=== PATIENT | male | born 1965 | race Caucasian/White ===

== ENCOUNTER 2020-05-26 11:38 | Emergency (ER) | payer SELFPAY ==
[2020-05-26] VITALS (29 sets, daily range): BP systolic 148–180; BP diastolic 83–115; PULSE 60–81; RESP 13–25; TEMP 36.5; O2SAT 97–100
--- NOTE | 2020-05-26 11:30 | RT.EKG_ITS ---
APPROVED REPORT Exam: Resting ECG Patient Location: E HR:61 bpm ECG Measurements Heart Rate 61 AXIS MN 165 P 48 QRSd 88 QRS 51 QT 403 T 54 QTc 406 Conclusion Sinus rhythm...normal P axis, V-rate 60- 99 I have reviewed and interpreted ECG and agree with software generated interpretation.
--- NOTE | 2020-05-26 11:49 | ED.GENADUL_ITS ---
Discharge Plan Disposition Patient Disposition: HOME Condition: Improving Discharge Details Clinical Impression: Vertigo, Vomiting, Hypertension Primary Care Provider: None,None ED Provider: Myranda Dominguez Home Meds and New Rx's Prescriptions: New meclizine 12.5 mg tablet 12.5 mg PO TID PRN (Reason: dizziness) Qty: 14 RF: 0 hydrochlorothiazide 12.5 mg tablet 12.5 mg PO DAILY Qty: 30 RF: 0 Discharge Instructions Instructions: Vertigo (ED), Hypertension (ED) Additional Instructions: Drink plenty of fluids and get plenty of rest. Take Zofran as needed directed for nausea and vomiting. Take the meclizine as needed and directed for dizziness. Be sure to watch your sodium intake as your diet could be a large part of your elevated blood pressure. Continue to monitor your blood pressure. If it continues to remain high, i.e. 150/90, you can start the blood pressure medication. You will receive a call from care management regarding a follow-up appointment with a primary care doctor to establish care and to recheck your blood pressure. Return immediately to the emergency department if you develop any worsening or new concerning symptoms. Stand Alone Forms: Work Release Discharge Data Discharge Physician: Myranda Dominguez Medical Decision Making 1200 -- 54-year-old male with no significant past medical history presents for dizziness and vomiting after awakening this morning. Blood pressure hypertensive. 157/101. Patient states he was noted to have high blood pressure on his recent physical for his job. Has not taken blood pressure medication. He appears nontoxic. No focal deficits. History and presentation appear likely consistent with vertigo. Considering patient's age and hypertension, will check screening labs, CT head and cervical spine and chest x-ray, give fluids and meclizine and Tylenol and reassess. 1345 --labs and imaging reviewed and unremarkable. Troponin negative. CT head and cervical spine and chest x-ray negative. Patient reassessed and he feels much better and feels good to go home. BP remains hypertensive. 170/82. He denies any headache, chest pain or dizziness. He states he has been eating lots of processed foods with high sodium while he is awaiting for his paycheck. He is advised to watch his sodium intake. We will send home with a prescription for hydrochlorothiazide to start if blood pressure remains high after diet changes. Care management discussed with patient at bedside and he was given resources regarding starting his insurance process. He was placed on care management list to arrange for a follow-up appointment with the primary care to establish care and follow-up of his blood pressure and vertigo. Usual and customary return precautions given prior to discharge. Medical Records Medical records reviewed: Yes I reviewed the patient's medical records. Imaging Data Radiologic Study: Radiologist's impression: XR CHEST 2V PA LATERAL CLINICAL HISTORY: dizziness, r/o acute disease TECHNIQUE: 2D digital imaging was performed. COMPARISON: No exams were available for comparison FINDINGS: MEDIASTINUM: Normal. HEART: Normal. PULMONARY VASCULATURE: Normal. LUNGS: Clear. PLEURAL SPACE: No pleural effusion or pneumothorax. BONE:Within normal limits for the patient's age. OTHER FINDINGS:Normal. IMPRESSION: No acute pulmonary findings. CT HEAD CERVICAL SPINE WO CLINICAL HISTORY: headache, neck pain, dizziness, vomiting. TECHNIQUE: Imaging Protocol: Axial computed tomography images with coronal and sagittal reformatted images were created and reviewed COMPARISON: No exams were available for comparison FINDINGS: CT Head: Ventricles and Extra axial spaces: Normal in size and morphology for the patient's age. Hemorrhage: None. Cerebral parenchyma: Normal. Midline shift: None. Brainstem/Cerebellum: Normal. Calvarium: Normal. Visualized Paranasal sinuses/Mastoids: Mucous retention cyst or polyp is seen in the left maxillary sinus. The remaining sinuses and mastoid air cells are clear. Soft Tissues: Unremarkable. CT Cervical Spine: Bones: No acute fracture or subluxation. Mild degenerative changes in the cervical spine are noted. There is straightening of the normal cervical lordosis which may be due to muscle spasm or patient positioning. Soft Tissues: Unremarkable. Lung Apices: Clear. IMPRESSION: 1. No acute intracranial process. 2. No acute fracture or subluxation in the cervical spine. 3. Findings were discussed with the emergency department on the date of the examination. Lab Data Lab results reviewed: Yes I reviewed the patient's lab results. Labs: Laboratory Tests Range/Units 05/26/20 05/26/20 05/26/20 12:00 12:00 12:00 WBC (4.4-10.8) 10^3/uL 9.80 RBC (4.36-5.78) 10^6/uL 4.69 Hgb (13.5-17.5) g/dL 15.4 Hct (40.0-50.0) % 42.9 MCV (80-95) fL 91.5 MCH (27.0-33.0) pg 32.8 MCHC (32.0-36.0) % 35.9 RDW (11.8-14.1) % 11.9 Plt Count (130-400) 10^3/uL 243 MPV (8.0-11.0) fL 9.3 Immature Gran % 0.4 Neutrophils % 86.7 Lymphocytes % 8.1 Monocytes % 4.0 Eosinophils % 0.3 Basophils % 0.5 Nucleated RBC % % 0 Absolute Neutrophils (1.2-6.7) 10^3/uL 8.50 H Absolute Lymphocytes (1.2-3.4) 10^3/uL 0.79 L Absolute Monocytes (0.1-0.8) 10^3/uL 0.39 Absolute Eosinophils (0.0-0.7) 10^3/uL 0.03 Absolute Basophils (0.0-0.2) 10^3/uL 0.05 PT (9.3-11.0) sec 10.4 INR (0.9-1.1) 1.0 APTT (21.0-27.5) sec 22.2 Sodium (136-145) mmol/L 141 Potassium (3.5-5.1) mmol/L 4.0 Chloride (98-107) mmol/L 106 Carbon Dioxide (21.0-32.0) mmol/L 27.4 Anion Gap (3-11) mmol/L 7.6 BUN (7-18) mg/dL 18 Creatinine (0.70-1.30) mg/dL 0.94 Estimated GFR/1.73 m2 (mL/min/1.73m2) >= 60.00 Glucose (74-106) mg/dL 101 Calcium (8.5-10.1) mg/dL 8.5 Magnesium (1.8-2.4) mg/dL 2.1 Total Bilirubin (0.2-1.0) mg/dL 0.3 AST (15-37) U/L 13 L ALT (16-63) U/L 26 Alkaline Phosphatase (46-116) U/L 51 Troponin I (<0.06) ng/mL < 0.05 Total Protein (6.4-8.2) g/dL 7.1 Albumin (3.4-5.0) g/dL 4.0 Urine Color (Yellow) Urine Clarity (Clear) Urine pH (5-8) Ur Specific [place] (1.005-1.025) Urine Protein (Negative) mg/dL Urine Ketones (Negative) mg/dL Urine Blood (Negative) Urine Nitrite (Negative) Urine Bilirubin (Negative) Urine Urobilinogen (Up TO 0.2) EU/dL Ur Leukocyte Esterase (Negative) Urine Glucose (Negative) mg/dL Range/Units 05/26/20 13:24 WBC (4.4-10.8) 10^3/uL RBC (4.36-5.78) 10^6/uL Hgb (13.5-17.5) g/dL Hct (40.0-50.0) % MCV (80-95) fL MCH (27.0-33.0) pg MCHC (32.0-36.0) % RDW (11.8-14.1) % Plt Count (130-400) 10^3/uL MPV (8.0-11.0) fL Immature Gran % Neutrophils % Lymphocytes % Monocytes % Eosinophils % Basophils % Nucleated RBC % % Absolute Neutrophils (1.2-6.7) 10^3/uL Absolute Lymphocytes (1.2-3.4) 10^3/uL Absolute Monocytes (0.1-0.8) 10^3/uL Absolute Eosinophils (0.0-0.7) 10^3/uL Absolute Basophils (0.0-0.2) 10^3/uL PT (9.3-11.0) sec INR (0.9-1.1) APTT (21.0-27.5) sec Sodium (136-145) mmol/L Potassium (3.5-5.1) mmol/L Chloride (98-107) mmol/L Carbon Dioxide (21.0-32.0) mmol/L Anion Gap (3-11) mmol/L BUN (7-18) mg/dL Creatinine (0.70-1.30) mg/dL Estimated GFR/1.73 m2 (mL/min/1.73m2) Glucose (74-106) mg/dL Calcium (8.5-10.1) mg/dL Magnesium (1.8-2.4) mg/dL Total Bilirubin (0.2-1.0) mg/dL AST (15-37) U/L ALT (16-63) U/L Alkaline Phosphatase (46-116) U/L Troponin I (<0.06) ng/mL Total Protein (6.4-8.2) g/dL Albumin (3.4-5.0) g/dL Urine Color (Yellow) Straw Urine Clarity (Clear) Clear Urine pH (5-8) 7.0 Ur Specific [place] (1.005-1.025) 1.015 Urine Protein (Negative) mg/dL Negative Urine Ketones (Negative) mg/dL Negative Urine Blood (Negative) Negative Urine Nitrite (Negative) Negative Urine Bilirubin (Negative) Negative Urine Urobilinogen (Up TO 0.2) EU/dL 0.2 Ur Leukocyte Esterase (Negative) Negative Urine Glucose (Negative) mg/dL Negative ECG Data Attestation: I personally reviewed and interpreted this ECG (s) as follows: Interpretation: Rate of 61, sinus, no acute ST elevation or depression. MS 155. QRS 88. QTc 406. HPI General Mode of arrival: EMS . Date/Time Provider Initiated Documentation: 05/26/20 11:44 . Limitations to Documentation: no limitations . Information obtained by: patient . HPI Narrative: Patient is a 54-year-old male with no diagnosed past medical history who presents for an episode of dizziness and vomiting today that happened upon awakening. He states he woke this morning and upon getting out of bed had extreme dizziness with a sensation of room spinning. He states the dizziness was worse with keeping his eyes open or moving his head. Patient is still vomiting twice after getting up and moving around at home. He was given a dose of Zofran in route per EMS with improvement. Patient also admits to intermittent headaches over the past week and states his headache is currently minimal and 1/10. He also admits to some neck pain with head movement but denies any known fever, ear pain, sore throat, cough, chest pain, shortness of breath, abdominal pain or diarrhea. Patient s tates he moved here from [facility] a few months ago. He most recently traveled there for his mother's approximately 20 days ago. He denies any known sick contacts or exposure to coronavirus. Related Data Home Medications Medication Instructions Recorded Confirmed hydrochlorothiazide 12.5 mg PO DAILY #30 tab 05/26/20 meclizine 12.5 mg PO TID PRN #14 tab 05/26/20 Previous Rx's Medication Instructions Recorded hydrochlorothiazide 12.5 mg PO DAILY #30 tab 05/26/20 meclizine 12.5 mg PO TID PRN #14 tab 05/26/20 Allergies Allergy/AdvReac Type Severity Reaction Status Date / Time No Known Allergies Allergy Unverified 05/26/20 11:49 General Stated Complaint: Dizzy/Sync LILA: 3 Review of Systems All systems reviewed & are unremarkable except as noted in HPI and below Constitutional Constitutional: Reports as per HPI, Denies chills, Denies fever(s) and Reports headache(s) Eyes Eyes: Denies blurry vision ENT Ears, Nose, Mouth, and Throat: Reports dizziness, Reports headache(s), Denies sore throat and Denies throat swelling Cardiovascular Cardiovascular: Denies chest pain and Denies dyspnea Respiratory Respiratory: Denies cough and Denies dyspnea Gastrointestinal Gastrointestinal: Denies abdominal pain, Denies diarrhea and Reports vomiting Genitourinary Genitourinary: Denies hematuria and Denies dysuria Musculoskeletal Musculoskeletal: Denies back pain and Denies numbness Integumentary/Breasts Skin/Breast: Denies lesions and Denies rash Neurologic Neurologic: Reports dizziness, Reports headache(s), Denies localized weakness and Denies numbness Allergic/Immunologic Allergic/Immunologic: Denies throat swelling [facility] Medical History (Updated 05/26/20 @ 14:16 by Myranda Dominguez DO) No significant past medical history Surgical History (Updated 05/26/20 @ 13:45 by Myranda Dominguez DO) No significant past surgical history Social History Smoking/Tobacco Use Status: Current every day Tobacco Type: cigarettes Smoking risk assessment performed?: Yes Alcohol Intake: current Alcohol Intake frequency: a few times a week Alcohol type: beer Drug use: Daily Substance use type: marijuana Do you feel safe at home: Yes Do you feel safe in your relationship?: Yes Exam Const General: cooperative and healthy appearing Orientation: alert and awake HENMT Head: normal to inspection Ears: hearing grossly normal bilaterally, external ears normal and TM's normal bilaterally General nose exam: external nose normal Face and sinus: normal facial exam Mouth: oral mucosae normal Teeth and gingiva: dentition normal Throat: posterior oropharynx normal Eyes General: appearance normal, both eyes and all related structures Eyelids: eyelids normal Pupils: PERRL EOM: EOM intact bilaterally Neck Neck: normal visual inspection Lymphatic: no lymphadenopathy noted Chest Chest: normal inspection of the chest Resp Effort & Inspection: normal respiratory effort and able to speak in complete sentences Auscultation: clear to auscultation bilaterally Cardio Rate: regular rate Rhythm: regular rhythm GI Inspection: normal to inspection Palpation: soft, not firm, no guarding, no hepatosplenomegaly, no masses and nontender Auscultation: normal bowel sounds Back/Spine/Pelvis Back: no CVA tenderness Skin General skin exam: no rashes or lesions noted Neuro General: patient alert and patient awake Cranial Nerves: CN's II-XI intact bilaterally Cognition: normal cognition Speech: speech normal Gait: normal gait Motor: muscle tone normal throughout and strength 5/5 throughout Sensory Exam: no sensory deficits noted Extrem General: normal to inspection, full ROM and capillary refill normal Psych Appearance: grossly normal Mental Status: mental status grossly normal Speech and Movement: speech and movement normal Affect: normal affect Thought Process: normal Course Vital Signs Vital signs: Vital Signs Temperature 97.7 F 05/26/20 11:39 Pulse 60 05/26/20 11:39 Blood Pressure 157/101 H 05/26/20 11:39 Pulse Oximetry 99 05/26/20 11:39 Temperature 97.7 F 05/26/20 11:39 Temperature Source Temporal Artery Scan 05/26/20 11:39 Pulse 60 05/26/20 11:39 Respiratory Rate 16 05/26/20 11:44 Respiratory Effort Non-Labored 05/26/20 11:44 Respiratory Depth Normal 05/26/20 11:44 Respiratory Pattern Normal 05/26/20 11:44 Blood Pressure 157/101 H 05/26/20 11:39 Blood Pressure Position Sitting 05/26/20 11:39 Pulse Oximetry 99 05/26/20 11:39 Oxygen Delivery Method Room Air 05/26/20 11:39 Oxygen Flow Rate 0 05/26/20 11:39 Pain Level 0 05/26/20 11:39
[2020-05-26 12:13] LABS: Abs Immature Grans 0.04 10^3/uL (0.0-0.06); Absolute Basophil Count 0.05 10^3/uL (0.0-0.2); Absolute Eosinophil Count 0.03 10^3/uL (0.0-0.7); Absolute Lymphocyte Count 0.79 10^3/uL (1.2-3.4); Absolute Monocyte Count 0.39 10^3/uL (0.1-0.8); Basophils % 0.5; Eosinophils % 0.3; HCT 42.9 % (40.0-50.0); HGB 15.4 g/dL (13.5-17.5); Immature Grans % 0.4; Lymphocytes % 8.1; MCH 32.8 pg (27.0-33.0); MCHC 35.9 % (32.0-36.0); MCV 91.5 fL (80-95); MPV 9.3 fL (8.0-11.0); Neutrophils % 86.7; Nucleated RBC 0 %; Platelet Count 243 10^3/uL (130-400); RBC 4.69 10^6/uL (4.36-5.78); RDW 11.9 % (11.8-14.1); RDW-SD 39.3 fL
[2020-05-26] MEDS: Normal Saline Flush 10 ML SYR IVP (12:13)
[2020-05-26] MEDS: Normal Saline 1,000 ML 1000 ML IV (12:13)
--- NOTE | 2020-05-26 12:15 | DI.RAD_ITS ---
EXAM: XR CHEST 2V PA LATERAL CLINICAL HISTORY: dizziness, r/o acute disease TECHNIQUE: 2D digital imaging was performed. COMPARISON: No exams were available for comparison FINDINGS: MEDIASTINUM: Normal. HEART: Normal. PULMONARY VASCULATURE: Normal. LUNGS: Clear. PLEURAL SPACE: No pleural effusion or pneumothorax. BONE:Within normal limits for the patient's age. OTHER FINDINGS:Normal. IMPRESSION: No acute pulmonary findings. DATA REPOSITORY: RADIATION DOSE DELIVERED:
[2020-05-26 12:27] LABS: PTT Activated 22.2 sec (21.0-27.5); Prothrombin Time 10.4 sec (9.3-11.0)
[2020-05-26 12:34] LABS: ALT 26 U/L (16-63); AST 13 U/L (15-37); Alkaline Phosphatase 51 U/L (46-116); Anion Gap 7.6 mmol/L (3-11); BUN 18 mg/dL (7-18); Bilirubin, Total 0.3 mg/dL (0.2-1.0); CO2 27.4 mmol/L (21.0-32.0); CREATININE 0.94 mg/dL (0.70-1.30); Calcium 8.5 mg/dL (8.5-10.1); Chloride 106 mmol/L (98-107); Glucose 101 mg/dL (74-106); Magnesium 2.1 mg/dL (1.8-2.4); Sodium 141 mmol/L (136-145); Total Protein 7.1 g/dL (6.4-8.2)
[2020-05-26] MEDS: ACETAMINOPHEN 1,000 MG/100 ML BTL 400 MG IVPB (12:37)
[2020-05-26] MEDS: Meclizine 25 MG TAB PO (12:37)
[2020-05-26 12:39] LABS: Troponin I < 0.05 ng/mL (<0.06)
--- NOTE | 2020-05-26 13:17 | DI.CT_ITS ---
EXAM: CT HEAD CERVICAL SPINE WO CLINICAL HISTORY: headache, neck pain, dizziness, vomiting. TECHNIQUE: Imaging Protocol: Axial computed tomography images with coronal and sagittal reformatted images were created and reviewed COMPARISON: No exams were available for comparison FINDINGS: CT Head: Ventricles and Extra axial spaces: Normal in size and morphology for the patient's age. Hemorrhage: None. Cerebral parenchyma: Normal. Midline shift: None. Brainstem/Cerebellum: Normal. Calvarium: Normal. Visualized Paranasal sinuses/Mastoids: Mucous retention cyst or polyp is seen in the left maxillary s inus. The remaining sinuses and mastoid air cells are clear. Soft Tissues: Unremarkable. CT Cervical Spine: Bones: No acute fracture or subluxation. Mild degenerative changes in the cervical spine are noted. There is straightening of the normal cervical lordosis which may be due to muscle spasm or patient po sitioning. Soft Tissues: Unremarkable. Lung Apices: Clear. IMPRESSION: 1. No acute intracranial process. 2. No acute fracture or subluxation in the cervical spine. 3. Findings were discussed with the emergency department on the date of the examination. RADIATION DOSE DELIVERED: Total DLP DATA REPOSITORY: All CT scans at this facility are submitted to the National Radiology Data Registry (NRDR) Dose Index Registry (DIR) with the [employer] (A[employer]). RADIATION OPTIMIZATION: All CT scans at this facility use at least one of these dose optimization te chniques: automated exposure control; mA and/or kV adjustment per patient size (includes targeted exa ms where dose is matched to clinical indication); or iterative reconstruction.
[2020-05-26 13:49] LABS: Bilirubin Negative (Negative); Blood Negative (Negative); Clarity Clear (Clear); Glucose Negative (Negative); Ketones Negative (Negative); Leukocyte Esterase Negative (Negative); Nitrite Negative (Negative); Specific Gravity 1.015 (1.005-1.025); Urobilinogen 0.2 EU/dL (Up TO 0.2)
--- NOTE | 2020-05-26 14:30 | NUR.NOTE ---
Referral to Care Management to establish pcp.Nursing Note:
--- NOTE | 2020-05-26 17:43 | CMPROGNOTE_ITS ---
- If Service Date Differs Date of service: 05/26/20 Time of Service: 17:43 Care Management Progress Note At the request of Dr. Dominguez, ED provider, JANAE meets with patient to discuss health insurance and how to obtain a PCP. Jesus advises he recently moved to [place] from [place], [place]. He started working at [employer] six days ago, recently attended employee orientation, and has all necessary forms to apply for health insurance through his employer but has not yet decided on a plan. Due to the likelihood that his employer sponsored plan will not be effective immediately, JANAE advises Ge of the patient assistance offered at [facility] and provides him with a patient assistance form. JANAE also provides Ge with the phone number for [facility], as Dr. Marion is the on-call provider, and advises him to expect a phone call from [facility] to schedule a follow up appointment and to establish care.
== END 2020-05-26 14:41 | disposition home or self-care (01) ==
PROVIDERS: Emergency Provider Physician Assistant
DX: R03.0 Elevated blood-pressure reading, without diagnosis of hypertension (principal); R42 Dizziness and giddiness; R11.2 Nausea with vomiting, unspecified
CPT/HCPCS: 36415; 80053; 93005; 96361; 96374; 99285; 70450; 71046; 72125; 81003; 83735; 84484; 85025; 85610; 85730; 93010; J0131

== ENCOUNTER 2020-12-17 13:19 | Outpatient (REF) | payer BC, SELFPAY ==
[2020-12-17 20:38] LABS: Calculated LDL 156 mg/dL (<100); Cholesterol 229 mg/dL (<200); HDL Cholesterol 40 mg/dL (40-60); Triglyceride 165 mg/dL (<150)
== END 2020-12-17 13:20 | disposition home or self-care (01) ==
LOC: NCHCN 13:19
PROVIDERS: Visit Provider Nurse Practitioner Community Health
DX: Z00.00 Encounter for general adult medical examination without abnormal findings (principal); Z13.220 Encounter for screening for lipoid disorders
CPT/HCPCS: 80061

== ENCOUNTER 2021-02-11 07:35 | Outpatient (REF) | payer BC, SELFPAY ==
[2021-02-11 20:58] LABS: Anion Gap 8.9 mmol/L (3-11); BUN 15 mg/dL (7-18); CO2 28.1 mmol/L (21.0-32.0); Chloride 104 mmol/L (98-107); Glucose 125 mg/dL (74-106); Potassium 3.7 mmol/L (3.5-5.1); Sodium 141 mmol/L (136-145)
== END 2021-02-11 07:36 | disposition home or self-care (01) ==
LOC: NCHCN 07:35
PROVIDERS: Visit Provider Nurse Practitioner Community Health
DX: I10 Essential (primary) hypertension (principal)
CPT/HCPCS: 80048

== ENCOUNTER 2021-03-25 15:38 | Outpatient (REF) | payer BC, SELFPAY ==
[2021-03-25 20:44] LABS: Anion Gap 11.9 mmol/L (3-11); BUN 13 mg/dL (7-18); CO2 24.1 mmol/L (21.0-32.0); CREATININE 0.9 mg/dL (0.70-1.30); Calcium 9.2 mg/dL (8.5-10.1); Chloride 102 mmol/L (98-107); Glucose 107 mg/dL (74-106); Sodium 138 mmol/L (136-145)
== END 2021-03-25 15:39 | disposition home or self-care (01) ==
LOC: NCHCN 15:38
PROVIDERS: Visit Provider Nurse Practitioner Community Health
DX: I10 Essential (primary) hypertension (principal)
CPT/HCPCS: 80048

== ENCOUNTER 2021-07-22 18:35 | Outpatient (REF) | payer BC, SELFPAY ==
[2021-07-22 22:25] LABS: ALT 56 U/L (16-63); AST 24 U/L (15-37); Albumin 4.1 g/dL (3.4-5.0); Alkaline Phosphatase 52 U/L (46-116); Anion Gap 9.2 mmol/L (3-11); BUN 12 mg/dL (7-18); Bilirubin, Total 0.6 mg/dL (0.2-1.0); CO2 27.8 mmol/L (21.0-32.0); CREATININE 1.1 mg/dL (0.70-1.30); Calcium 8.7 mg/dL (8.5-10.1); Calculated LDL 83 mg/dL (<100); Chloride 100 mmol/L (98-107); Cholesterol 165 mg/dL (<200); Glucose 127 mg/dL (74-106); HDL Cholesterol 46 mg/dL (40-60); Potassium 3.9 mmol/L (3.5-5.1); Sodium 137 mmol/L (136-145); Triglyceride 184 mg/dL (<150)
== END 2021-07-22 18:36 | disposition home or self-care (01) ==
LOC: NCHCN 18:35
PROVIDERS: Visit Provider Nurse Practitioner Family
DX: E78.00 Pure hypercholesterolemia, unspecified (principal)
CPT/HCPCS: 80053; 80061

== ENCOUNTER 2022-05-02 23:14 | Outpatient (REF) | payer BC, SELFPAY ==
[2022-05-02 21:03] LABS: Anion Gap 3.8 mmol/L (3-11); BUN 17 mg/dL (7-18); CO2 27.2 mmol/L (21.0-32.0); CREATININE 1.1 mg/dL (0.70-1.30); Calcium 8.7 mg/dL (8.5-10.1); Chloride 105 mmol/L (98-107); Glucose 124 mg/dL (74-106); Potassium 3.7 mmol/L (3.5-5.1); Sodium 136 mmol/L (136-145)
[2022-05-03 22:26] LABS: PSA, Screening 0.7 ng/mL (<=3.5)
== END 2022-05-02 23:15 | disposition home or self-care (01) ==
LOC: NCHCN 23:14
PROVIDERS: Visit Provider Nurse Practitioner Family
DX: I10 Essential (primary) hypertension (principal); Z12.5 Encounter for screening for malignant neoplasm of prostate
CPT/HCPCS: 80048; 84153

== ENCOUNTER 2023-05-01 18:30 | Outpatient (REF) | payer BC, SELFPAY ==
[2023-05-01 21:53] LABS: Hemoglobin A1C 5.7 % (<5.7)
[2023-05-01 21:58] LABS: ALT 41 U/L (16-63); AST 22 U/L (15-37); Albumin 3.6 g/dL (3.4-5.0); Alkaline Phosphatase 56 U/L (46-116); Anion Gap 7.1 mmol/L (3-11); BUN 14 mg/dL (7-18); Bilirubin, Total 0.4 mg/dL (0.2-1.0); CO2 27.9 mmol/L (21.0-32.0); Calcium 8.8 mg/dL (8.5-10.1); Calculated LDL 68 mg/dL (<100); Chloride 104 mmol/L (98-107); Cholesterol 131 mg/dL (<200); Estimated GFR 87.24 (mL/min/1.73m2); Glucose 122 mg/dL (74-106); HDL Cholesterol 39 mg/dL (40-60); Potassium 3.9 mmol/L (3.5-5.1); Sodium 139 mmol/L (136-145); Triglyceride 121 mg/dL (<150)
== END 2023-05-01 18:31 | disposition home or self-care (01) ==
LOC: NCHCN 18:30
PROVIDERS: Visit Provider Nurse Practitioner Family
DX: I10 Essential (primary) hypertension (principal); E78.00 Pure hypercholesterolemia, unspecified; R73.9 Hyperglycemia, unspecified
CPT/HCPCS: 80053; 80061; 83036

== ENCOUNTER 2024-08-07 15:31 | Outpatient (REF) | payer BC, SELFPAY ==
--- OUTSIDE RECORDS SUMMARY | 2024-08-07 15:34 | XMS_ITS | Clinical Summary ---
Author Organization [facility] Address [address] [place] [address] Care Team Providers Care Cement Mason Name Role Phone Juanita Marie [facility] Primary Care Provider [phone] Allergies No known active allergies Medications atorvastatin (LIPITOR) 20 mg tablet Take 1 Tablet by mouth at bedtime. 07/26/2023 Active hydroCHLOROthiaz michael (HYDRODIURIL) 25 mg tablet Take 1 Tablet by mouth daily. 08/02/2023 Active valsartan (DIOVAN) 160 mg tablet Take 1 Tablet by mouth daily. 07/27/2023 Active Social History Tobacco Use Types Packs/Day Years Used Date Smoking Tobacco: Never Assessed Sex and Gender Information Value Date Recorded Sex Assigned at Not on file Legal Sex Male 15:24 EST Gender Identity Male 06/05/2021 15:30 EST Sexual Orientation Not on file Last Filed Vital Signs Vital Sign Reading Time Taken Comments Blood Pressure 171/100 09/28/2023 1549 EDT Pulse 90 09/28/2023 1248 EDT Temperature 35.7 ??C (96.3 ??F) 09/28/2023 1248 EDT Respiratory Rate 18 09/28/2023 1248 EDT Oxygen Saturation 98% 09/28/2023 1549 EDT Inhaled Oxygen Concentration - - Weight - - Height - - Body Mass Index - - Plan of Treatment Upcoming Encounters Date Type Department Care Team (Late st Contact Info) Description 08/19/2024 14:30 EST Rehab Therapy Visit [facility] [address] [place] [address] Alisia Vuong, PT [address] [facility], [place] [id number] 08/26/2024 14:30 EST Rehab Therapy Visit [facility] [address] [place], [place] [id number] Alisia Vuong, PT [address] [place] [address] Health Maintenance Due Date Last Done Comments Hepatitis C Screen 1965 COVID-19 Vaccine ( - 2023-25 season) 2024 RSV Immunization ( o r 60+ Years) (1 - 1-dose 75+ series) 2039 Insurance Care Teams Cement Mason Relationship Specialty Start Date End Date Juanita Marie FNP [address] [place] [id number] PCP - General Family Medicine - Primary Care 09/28/23
--- OUTSIDE RECORDS SUMMARY | 2024-08-07 15:34 | XMS_ITS | Encounter Summary ---
Author Organization [facility] Address [address] [place] [address] Care Team Providers Care Training Professional Name Role Phone Dung Truong [facility]- Primary Care Provider [phone] Reason for Visit * Reason Comments Cough began with a runny n ose,fatigue, foreman and fever Encounter Details Date Type Department Care Team (Late st Contact Info) Description 06/05/2021 15:30 EST Office Visit [facility] [address] [place], [place] [id number] Erin Hinojosa NP [address] [facility] [address] [place], [place] [id number] Cough (Primary Dx) Social History Tobacco Use Types Packs/Day Years Used Date Smoking Tobacco: Never Assessed Sex and Gender Information Value Date Recorded Sex Assigned at Not on file Legal Sex Male 15:24 EST Gender Identity Male 06/05/2021 15:30 EST Sexual Orientation Not on file documented as of this encounter Last Filed Vital Signs Vital Sign Reading Time Taken Comments Blood Pressure 130/80 06/05/2021 1555 EST Pulse 100 06/05/2021 1600 EST Temperature 37.7 ??C (99.9 ??F) 06/05/2021 1555 EST Respiratory Rate 16 06/05/2021 1555 EST Oxygen Saturation 96% 06/05/2021 1600 EST Inhaled Oxygen Concentration - - Weight - - Height - - Body Mass Index - - documented in this encounter Patient Instructions * Patient Instructions* Erin Hinojosa NP - 06/05/2021 15:30 EST Dough - Rest, drink plenty of fluids. Take tylenol as needed for fever, headache, body aches. Over the counter cough and cold medication (for example, nyquil) can help with cough and nasal congestion. This also has tylenol (acetaminophen) in it. Please stay home except to get medical care. We will call you with the result of the COVID test in 1-3 days or you can see the result on MyChart. We always call if it is positive. Please be seen in the emergency department for worsening shortness of breath or dizziness. HOME CARE FOR COVID19 OR SUSPECTED COVID19 WHEN YOU HAVE COVID19 or symptoms consistent with COVID19, it is very important that you are QUARANTINED AT HOME to avoid spreading the disease. IN GENERAL QUARANTINE MUST CONTINUE UNTIL: ??? You have been fever free for 24 hours without use of fever-reducing medications (like ibuprofenor Tylenol) AND ??? Your cough, shortness of breath and/or other symptoms have significantly improved AND ??? It has been a minimum of 10 days since your symptoms began. MOST PEOPLE WILL NEED TO BE HOME LONGER THAN 10 DAYS. ??? If you have been told by a health care provider to quarantine, follow these instructions: ??? STAY HOME. You should be in full quarantine from contact with anyone outside of your home. ??? DO NOT GO TO WORK, SCHOOL, OR ANY PUBLIC PLACES. Do not go to gresham, stores, or meeting places to pecan picker or drop off items. ??? DO NOT USE PUBLIC TRANSPORTATION, RIDE-SHARING, TAXIS or other shared transportation. ??? ASK FOR HELP WITH GETTING SUPPLIES. If you do not have friends or relatives who are able to help with delivering necessary supplies to you, ask your health care provider to connect you with community support resources. o ALL supplies must be dropped off using 'NO CONTACT' delivery. o Stay inside while supplies are dropped off on your porch or at your door. o Do not go outside to collect items until the cash on delivery clerk has left the area. ??? SEPARATE YOURSELF FROM HOUSEHOLD MEMBERS MUCH POSSIBLE: o Sleep in a separate room if possible. o Use a separate bathroom if available. o Avoid sharing household items such as cups, dishes, utensils, bedding, towels, lotions or other body products. o If you must be in the same room as a household member for any reason or any amount of time, wear a face mask and try to maintain at least 6 feet of distance between you. o Always use a tissue or other disposable paper product to cover coughs and sneezes. Wash hands promptly afterwards. o CLEAN YOUR HANDS FREQUENTLY. Use soap and water for a minimum of 20 seconds or an alcohol based deburring machine operator containing at least 60% alcohol. o CLEAN HIGH TOUCH SURFACES in your house at least once daily. Use bleach wipes or bleach solution to clean counters, tables, door knobs, cabinet handles, refrigerator handle, kitchen and bathroom faucets, toilet, light switches, computer, etc. HOME TREATMENT RECOMMENDATION FOR CONFIRMED OR SUSPECTED COVID19 ??? STAY HYDRATED. Drink water, Gatorade/Pedialyte/ReCharge, herbal tea with honey. A good homemadeelectrolyte replacement beverage can be made by mixing 16 oz of water with about ?? cup of lemon/orange juice, about ?? tsp of salt, and a large spoonful of honey. Mix the honey with a small amount of boiled water first if needed to help it dissolve. ??? PAY ATTENTION TO YOUR BREATHING. If you are feeling short of breath at rest, if you are not able to easily speak in full sentences, if you are feeling more short of breath with normal activities such as walking up and down stairs or going to your mailbox, seek medical attention. o SHORTNESS OF BREATH OFTEN IMPROVES WHEN YOU SPEND TIME LYING ON YOUR STOMACH. Try sleeping on your stomach, and spend time during the day lying in this position. o IF YOU HAVE PREVIOUSLY BEEN PRESCRIBED AN ALBUTEROL INHALER, please use this with a spacer (if you have one). Use 2 puffs every 4-6 hours. If you have been previously prescribed any other inhalers such as Flovent or Advair, use those as prescribed. Consult your PCP with any questions. ??? MONITOR YOUR VITAL SIGNS as much as you are able. o Check your temperature regularly, and treat any fever over 101 with Tylenol/acetaminophen. If your fever does not respond to treatment, seek medical attention. - DO NOT USE NSAIDS (Advil, Motrin, Aleve, ibuprofen, naproxen, or aspirin). If you take these regularly, consult your PCP. - IF you have previously been told not to use Tylenol/acetaminophen, consult your PCP. o If you have a pulse-oximetry device at home, use this to monitor your oxygen levels. If you are consistently at 94% or lower, seek medical attention. o You can count your own pulse at home - if you are consistently having a heart rate over 100 at rest, seek medical attention. o PAY ATTENTION TO HOW YOU FEEL. If you feel that ???something just isn't right?? , follow your instincts and seek medical attention. documented in this encounter Progress Notes * Keena Dela Cruz RN - 06/05/2021 1530 EST CC/HPI:sick with covid like sx for 2 days, his friendswife had covid but friend was asymptomatic and vaccinated. Pt works for [employer] Covid Screening: In the last 72 hours, has the patient had: New or unusual cough, shortness of breath, new nasal congestion, sore throat, fever, chills, body aches, or new loss of taste or smell without a reasonable alternative diagnosis*? (If yes, assign patient to ARC schedule) In the past 14 days, has the patient had a confirmed close Covid exposure (<6ft for > 15mins in 24hr period)?unsure In the past 14 days, has the patient returned from international travel? no Is the patient fully Covid vaccinated? (If close exposure or international travel but fully vaccinated, remains NRC. If close exposure or international travel and unvaccinated, assign to ARC) *may be determined by RN or in discussion with available provider (DIRECTOR's and CCA's can defer to Charge Nurse to complete triage when appropriate) PCP: [facility] Truong Unvaccinated KEENA DELA CRUZ RN 06/05/21 15:44 * Erin Hinojosa NP - 06/05/2021 1530 EST [facility] Chief Complaint(s): Cough (began with a runny nose,fatigue, foreman and fever) HPI: Jesus is a 55 yo male presenting to [facility] for concern of cough x 2 days. Appetite OK. Cough is occasionally productive. Sore throat. Had to walk in snow and cold last night when car got stuck Current treatments: Aspirin Smoker: Vape Asthma: No COPD: No Cardiac hx: No He has h/o 3 mm nodule on lung that is being watched Sick contacts: Friend's had COVID but not friend ROS: Fever/chills: Yes Fatigue: yes Unintentional weight loss: No Loss of taste or smell: No Headaches: Yes Myalgias: Yes Nasal congestion: runny nose Sore throat: Yes: Hemoptysis: No Wheezing: No SOB: No Chest pain: Sore in ribs I have reviewed current problem list and current medications. Objective: Examination: Vitals: BP 130/80 (BP Cuff Location: Right arm, BP Patient Position: Sitting, BP Cuff Sizes: Adult, large) Pulse 100 Temp 37.7 ??C (99.9 ??F) (Oral) Resp 16 SpO2 96% There is no height or weight on file to calculate BMI. Physical Exam Vitals reviewed. Constitutional: General: He is not in acute distress. Appearance: Normal appearance. Cardiovascular: Rate and Rhythm: Normal rate. Heart sounds: Normal heart sounds. Pulmonary: Effort: Pulmonary effort is normal. Breath sounds: Normal breath sounds. No wheezing, rhonchi or rales. Skin: General: Skin is warm. Neurological: Mental Status: He is alert. Psychiatric: Comments: Anxious and tearful initially Assessment & Plan: 1. Cough 55 yo male, unvaccinated for COVID, with 2 days cough, fever, chills, FOREMAN, runny nose, body aches. Temp elevated in clinic at 99.9 and HR slightly elevated. Vitals otherwise WNL. He is anxious/nervousinitially but otherwise in no distress. Cardiac and lung exam WNL. Reviewed supportive care for suspected viral illness (including COVID-19). Reviewed infection control and quarantine. Reviewed return and ED precautions. - COVID-19 TESTING ([facility], [facility]) . documented in this encounter Plan of Treatment Upcoming Encounters Date Type Department Care Team (Late st Contact Info) Description 08/19/2024 14:30 EST Rehab Therapy Visit [facility] [address] [facility], [place] [address] Alisia Vuong, PT [address] [facility], [place] [address] 08/26/2024 14:30 EST Rehab Therapy Visit [facility] [address] [facility], [place] [address] Alisia Vuong, PT [address] [place] [address] documented as of this encounter Procedures Procedure Name Priority Date/Time Associated Diagnosis Comments ZZCOVID-19 TESTING ([facility],) Routine 06/05/2021 16:38 EST Cough ZZCOVID-19 TEST [facility] PCR Today 06/05/2021 16:38 EST Cough COVID-19 TESTING Today 06/05/2021 16:3 8 EST Cough documented in this encounter Results * COVID-19 TEST [facility] PCR (06/05/2021 16:38 EST) Swab BOTH ANTERIOR NARES / Unknown Swab / Unknown 06/05/2021 16:38 EST 06/05/2021 17:48 EST us Erin Hinojosa NP MICROBIOLOGY - GENERAL ORDERABL ES Final Result [facility] [address] [place] [address] * (ABNORMAL) COVID-19 TESTING (06/05/2021 16:38 EST) COVID-19 rt-PCR Result Positive( AA) Negative 06/06/2021 15:[address] [facility] Comment: This test has not been FDA cleared or approved. This test has been authorized by FDA under an EUA for use by authorized laboratories. This test has been authorized only for detection of nucleic acid from 2019-nCoV, not for any other viruses or pathogens. This test is only authorized for the duration of the declaration that circumstances exist justifying the authorization of emergency use of in vitro diagnostic tests for detection and/or diagnosis of 2019-nCoV under section 564(b)(1) of Act, 21 U.S.C ?? 360bbb-3(b) (1), unless the authorization is terminated or revoked sooner. Testing was performed using the oleksandr SARS-CoV-2 assay ([employer] on the Oleksandr 6800 System Performing Lab Oleksandr [address] [facility] 06/06/2021 15:[address] [facility] Swab BOTH ANTERIOR NARES / Unknown Swab / Unknown 06/05/2021 16:38 EST 06/05/2021 17:48 EST us Erin Hinojosa NP MICROBIOLOGY - GENERAL ORDERABL ES Final Result Performing Organization Address City/[facility]/ZIP Co de Phone Number [facility] [address] [place] [address] * COVID-19 TESTING ([facility], [facility]) (06/05/2021 16:38 EST) Performing Lab [facility] 06/05/2021 17:[address] [facility] Swab BOTH ANTERIOR NARES / Unknown Swab / Unknown 06/05/2021 16:38 EST 06/05/2021 16:[address] [facility] - 06/05/2021 17:48 EST [facility] Tier 2 Covid Test Erin Hinojosa NP MICROBIOLOGY - GENERAL ORDERABL ES Final Result Performing Organization Address City/[facility]/ZIP Co de Phone Number [facility] [address] [place] [address] documented in this encounter Visit Diagnoses Diagnosis Cough- Primary documented in this encounter Care Teams Training Professional Relationship Specialty Start Date End Date Dionne [facility] [address] [place] [address] PCP - General 06/05/21 08/20/23 documented as of this encounter
--- OUTSIDE RECORDS SUMMARY | 2024-08-07 15:34 | XMS_ITS | Encounter Summary ---
Author Organization [facility] Address [address] [place] [address] Care Team Providers Care Delivery Professional Name Role Phone Juanita Marie [facility] Primary Care Provider [phone] Encounter Details Date Type Department Care Team (Latest Contact Info) Description 09/28/2023 Travel Social History Tobacco Use Types Packs/Day Years Used Date Smoking Tobacco: Never Assessed Sex and Gender Information Value Date Recorded Sex Assigned at Not on file Legal Sex Male 15:24 EST Gender Identity Male 06/05/2021 15:30 EST Sexual Orientation Not on file documented as of this encounter Functional Status * Are you deaf or do you have serious difficulty hearing? Answer Date of Assessment Author No 09/28/2023 12:47 EDT Neha Avery RN documented as of this encounter Plan of Treatment Upcoming Encounters Date Type Department Care Team (Late st Contact Info) Description 08/19/2024 14:30 EST Rehab Therapy Visit [facility] [address] [address] Alisia Vuong, PT [address] [place], [place] [address] 08/26/2024 14:30 EST Rehab Therapy Visit [facility] [place] [facility] [address] [place], [place] [address] Alisia Vuong, PT [address] [place], [place] [phone] documented as of this encounter Visit Diagnoses Not on filedocumented in this encounter Care Teams Delivery Professional Relationship Specialty Start Date End Date Juanita Marie FNP [address] [place] [phone] PCP - General Family Medicine - Primary Care 09/28/23 documented as of this encounter
--- OUTSIDE RECORDS SUMMARY | 2024-08-07 15:34 | XMS_ITS | Referral Summary ---
Author Organization [facility] Address [address] [place] [address] Care Team Providers Care Oracle Etl Developer Name Role Phone Juanita Marie [facility] Primary Care Provider [phone] Allergies No known active allergies Medications atorvastatin [...] - - Body Mass Index - - Functional Status * Are you deaf or do you have serious difficulty hearing? Answer Date of Assessment Author No 09/28/2023 12:47 EDT Neha Avery, RN Plan of Treatment Upcoming Encounters Date Type Department Care Team (Late st Contact Info) Description 08/19/2024 14:30 EST Rehab Therapy Visit [facility] [address] [place] [address] Alisia Vuong, PT [address] [facility], [place] [address] 08/26/2024 14:30 EST Rehab Therapy Visit [facility] [address] [place] [address] Alisia Vuong, PT [address] [facility], [place] [phone] Insurance Care Teams Oracle Etl Developer Relationship Specialty Start Date End Date Juanita Marie FNP [address] [place] [phone] PCP - General Family Medicine - Primary Care 09/28/23
--- OUTSIDE RECORDS SUMMARY | 2024-08-07 15:34 | XMS_ITS | Encounter Summary ---
Author Organization [facility] Address [address] [place] [address] Care Team Providers Care Lath Tier Name Role Phone Juanita Marie MURAL PAINTER Primary Care Provider Reason for Visit * Reason Comments Diarrhea Diarrhea for the pas t two days, pt reports feeling weak and dehydrated. Denies N/V. Encounter Details Date Type Department Care Team (Late st Contact Info) Description 09/28/2023 13:27 EDT - 09/28/2023 16:04 EDT Emergency [facility] Emergency Department [address] [place] [address] Rupa Ho MD [address] [facility] [address] [place] [address] Diarrhea, unspecified type (Primary Dx) Discharge Disposition: Home or Self Care Social History Tobacco Use Types Packs/Day Years [...] Index - - documented in this encounter Functional Status * Are you deaf or do you have serious difficulty hearing? Answer Date of Assessment Author No 09/28/2023 12:47 EDT Neha Avery RN documented as of this encounter Discharge Instructions * Discharge Instructions* Rupa Ho MD - 09/28/2023 15:43 EDT You were seen in the emergency department for diarrhea. We discussed adequate hydration for this. If your diarrhea is frequent enough that it is interfering with your ability to function, you could take some Imodium for this. You can buy this [id number]. Please return to the emergency department for any development of abdominal pain fever, vomiting, or any other concerns. * Attachments The following attachments cannot be sent through Care Everywhere. * Diarrhea (Cuban) documented in this encounter Medications at Time of Discharge atorvastatin (LIPITOR) 20 mg tablet Take 1 Tablet by mouth at bedtime. 07/26/2023 hydroCHLOROthiazi de (HYDRODIURIL) 25 mg tablet Take 1 Tablet by mouth daily. 08/02/2023 valsartan (DIOVAN) 160 mg tablet Take 1 Tablet by mouth daily. 07/27/2023 documented as of this encounter Discharge Disposition Disposition Code Departure Means Destination Comment s Home or Self [facility] documented in this encounter ED Notes * Lolly Vega - 09/28/2023 1527 EDT Patient given saltine crackers per FLY Keane. * Rupa Ho MD - 09/28/2023 1245 EDT Emergency Department Visit Medical Decision Making Patient with diarrhea, we discussed supportive management of this. Given patient is generally feeling fatigued and like he is dehydrated, will place an IV and give IV fluids and check electrolytes. Electrolytes are within normal limits. Abdominal exam remains benign. Will discharge patient with plan to encourage fluids, bland diet. Given return precautions. Medical Decision Making Problems Addressed: Diarrhea, unspecified type: complicated acute illness or injury Amount and/or Complexity of Data Reviewed Labs: ordered. Disposition: Discharged Chief complaint: Diarrhea HPI 58-year-old male with hypertension who presents with diarrhea for 2 days. Patient states that it isprofuse and watery. He denies any abdominal pain, cramping, fever, bloody stools, nausea or vomiting. He suspects this may be related to eating some yogurt and changing his diet approximately1 week ago to include more fruits and vegetables, as his doctor had told him he was prediabetic. Denies any recent antibiotics, no recent travel, no unusual exposures. He does note generally feeling fatigued with a decrease in energy. He did decide to eat a pint of [employer] yogurt last night in hopes that this would help him feel better. BP (!) 171/100 Pulse 90 Temp 35.7 ??C (96.3 ??F) Resp 18 SpO2 98% A medical screening exam was performed. Physical Exam Very well-appearing Moist oral mucosa Abdomen is soft and nontender Procedures Procedures documented in this encounter Plan of Treatment Upcoming Encounters Date Type Department Care Team (Late st Contact Info) Description 08/19/2024 14:30 EST Rehab Therapy Visit [address] [phone] Alisia Vuong, PT [address] [place] [address] 08/26/2024 14:30 EST Rehab Therapy Visit [address] [address] Alisia Vuong, PT [address] [place], [place] [phone] documented as of this encounter Procedures Procedure Name Priority Date/Time Associated Diagnosis Comments STOOL CULTURE INC. SHIGA TOXIN STAT 09/28/2023 16:02 EDT BASIC METABOLIC PANEL (BMP) STAT 09/28/2023 14:34 EDT documented in this encounter Results * STOOL CULTURE INC. SHIGA TOXIN (09/28/2023 16:02 EDT) Organism ID No Campylobacter sp, Salmonella sp. Shigella sp. or E. Coli [id number]:[id number] VITEK SUSCEPTIBILITY 10/01/2023 8:14 EDT [facility] Organism ID [id number] SUSCEPTIBILITY 10/01/2023 8:14 EDT [facility] Feces SPECIMEN FROM RECTUM / Unknown Stool Collect / Unknown 09/28/2023 16:02 EDT 09/28/2023 16:03 EDT Narrative [facility] - 10/01/2023 8:14 EDT Stool Culture: ?No Campylobacter sp. Isolated ?No E.coli 0157:H7 isolated ?No Salmonella or Shigella isolated Shiga toxins 1 & 2: ?E. coli Shiga toxin 1 ? E. coli Shiga toxin 1 not detected ?E. coli Shiga toxin 2 ? E. coli Shiga toxin 2 not detected Stool specimen is negative for E.coli Shiga toxin 1 and Shiga toxin 2. us Rupa Ho MD MICROBIOLOGY - GENERAL ORDE DUC Final Result Performing Organization Address City/[facility]/ZIP Co de Phone Number [facility] [address] [place] [address] * (ABNORMAL) BASIC METABOLIC PANEL (BMP) (09/28/2023 14:34 EDT) Sodium 139 136 - 145 mmol/L 09/28/2023 15:26 EDT [facility] Potassium 3.5 3.5 - 5.0 mmol/L 09/28/2023 15:26 [facility] Chloride 102 96 - 110 mmol/L 09/28/2023 15:26 [facility] CO2 Total 28 22 - 32 mmol/L 09/28/2023 15:26 [facility] Anion Gap 9 5 - 14 mmol/L 09/28/2023 15:26 [facility] Glucose 131(H) 70 - 99 mg/dl 09/28/2023 15:26 [facility] Calcium 9.3 8.5 - 10.5 mg/dL 09/28/2023 15:26 [facility] BUN 10 10 - 26 mg/dL 09/28/2023 15:26 [facility] Creatinine 0.86 0.66 - 1.25 mg/dL 09/28/2023 15:26 [facility] eGFR 100 >60 mL/min/1.73 m2 09/28/2023 15:26 [facility] Blood VENOUS BLOOD / Unknown Venipuncture / Unknown 09/28/2023 14:34 EDT 09/28/2023 14:48 EDT us Rupa Ho MD CHEMISTRY & BLOOD GAS ORDER [place] Final Result [facility] [address] [place] [address] documented in this encounter Visit Diagnoses Diagnosis Diarrhea, unspecified type- Primary documented in this encounter Administered Medications Inactive Administered Medications - up to 3 most recent administrations Medication Order MAR Action Action Date Dose Rate Site lactated ringers BOLUS 1,000 mL 1,000 mL, intravenous, NOW X1, 1 dose, On Joelle 09/28/23 at 1445, STAT New Bag 09/28/2023 14:45 EDT 1,000 mL IV documented in this encounter Active and Recently Administered Medications Times are shown in EDT. Scheduled Medication Order 09/26/2023 09/27/2023 09/28/2023 lactated ringers BOLUS 1,000 mL (COMPLETED) 1,000 mL, intravenous, NOW X1, 1 dose, On Joelle 09/28/23 at 1445, STAT 1445 (New Bag - Prov ider: Harjit Young)1555 (Completed - Provider: Lakhwinder Martinez RN) documented in this encounter Orders Medications Ordered That Jin ht Not Have Been Administered Count Last Ordered Date First Ordered Date lactated ringers BOLUS 1,000 mL 1 4 documented in this encounter Care Teams Lath Tier Relationship Specialty Start Date End Date Juanita Marie FNP [address] [place] [phone] PCP - General Family Medicine - Primary Care 09/28/23 documented as of this encounter
--- OUTSIDE RECORDS SUMMARY | 2024-08-07 15:34 | XMS_ITS | Encounter Summary ---
Author Organization [facility] Address [address] [place] [address] Care Team Providers Care Application Support Developer Name Role Phone Dung Truong [facility]- Primary Care Provider [phone] Reason for Visit * Reason Onset Date Comments Results 06/07/2021 Encounter Details Date Type Department Care Team (Late st Contact Info) Description 06/07/2021 Telephone [facility] [address] [place] [address] Geno Muse RN Results Social History Tobacco Use Types Packs/Day Years Used Date Smoking Tobacco: Never Assessed Sex and Gender Information Value Date Recorded Sex Assigned at Not on file Legal Sex Male 15:24 EST Gender Identity Male 06/05/2021 15:30 EST Sexual Orientation Not on file documented as of this encounter Miscellaneous Notes * Telephone Encounter - Erin Hinojosa NP - 06/07/2021 1012 EST Patient notified of COVID-19 positive result. Date symptoms started: 06/03/21 Initial symptoms: cough, fever, fatigue, body aches, FOREMAN, runny nose Date of testin/27 COVID-19 vaccination status: unvaccinated Current status/symptoms: eating OK; lots of body aches, fatigued, a little short of breath with walking around Travel Hx: No Any exposure to Covid19 + individuals: coworker's tested positive but he was not around her, was around the coworker Household members/close contact: lives alone; coworker (already tested positive) Additional notes: Patient informed [facility] will be contacting them. To initiate the process of contact tracing we are asking you (the pt) to do the following: For patients who are symptomatic with a positive COVID19 result: Patient should contact those individuals you have had close contact with (defined as less than 6ft and for at least 15min) for the time period 48hrs prior to onset of your first symptom(s) For patients who are asymptomatic with a positive COVID19 result: Patient should contact those individuals that you have had close contact with (defined as less blwx1rn and for at least 15min) for the time period 48hrs prior to the date of your COVID19 test In both scenarios, those that have been in close contact with a Covid positive patient should themselves be instructed to quarantine for 14 days, and monitor for symptoms. They should be tested if they develop symptoms. COVID INFO: This is a spreadable viral illness that cannot be treated with antibiotics. Symptoms include fever,cough, shortness of breath that can last 2-4 weeks, sometimes longer. It is spread through person to person contact, by respiratory particles in the air, or by touching objects and surfaces that are contaminated with the virus then touching your mouth, nose, or eyes. We advise that you stay home and self-isolate except to get medical care. ? Stay home, get rest, and hydrate. ? Take Tylenol (acetaminophen), fever reducers, decongestants or cough medicine to manage symptoms.Call PCP first if you have chronic health conditions before you take these medications. ? Do not go to work/school/public areas. ? Avoid public transportation/ride-sharing/taxis. ? Separate yourself from other people and animals in your home. ? Stay in a specific room away from other people. ? Use a separate bathroom if available. ? Cover your coughs and sneezes with a tissue. ? Wear a facemask when around other people. ? Avoid sharing personal household items (cups, dishes, utensils, towels, bedding) ? Clean your hands often either with soap and water for 20 seconds or an alcohol-based hand beet end supervisor that contains at least 60% alcohol. ? Clean high-touch surfaces every day (counter, tables, doorknobs, toilet, computer, etc) We ask that you monitor your symptoms on a daily basis and seek prompt medical attention if your illness is worsening. Complications of the illness include pneumonia, organ failure, and in some casesdeath. Severe symptoms include: ? Severe shortness of breath or difficulty breathing (feeling like you cant get enough air or are gasping, unable to speak without stopping for air, feelings of distress). ? Weakness, dizziness, or chest pain. If you are experiencing any of these symptoms please call your primary care office BEFORE seeking care, or call 911 if its a medical emergency. Inform your PCP office or oil well services dispatcher you are positive (or being evaluated) for COVID19 and have worsening symptoms. Please put on a facemask before entering the facility. These steps will help reduce possible transmission to other people. When do I no longer need to stay home and self-isolate? People who have stayed home (self-isolated) can stop isolation under the following conditions (mustmeet all three conditions): 1. You have had no fever for at least the last 24 hours (that means full 24 hours of no fever without the use of fever-reducing medication) AND 2. Other symptoms have improved (for example, when your cough or shortness of breath gets better) AND 3. At least 10 days have passed since your symptoms first appeared. We recommend contacting your PCP within the next 2 -3 days to consider a follow up telemedicine visit, especially if you have underlying medical conditions that can put you at risk for complications (including, but not limited to: Chronic lung, kidney, or liver disease, immunocompromised status, diabetes mellitus, age >65yo, ). If you don't have a PCP, we can arrange a follow up visit with one of our [facility] clinicians. * Telephone Encounter - Geno Muse RN - 06/07/2021 [address] [facility] lab calling with patient POSITIVE COVID result Collected 06/05 Sending to in house provider for review/patient notification documented in this encounter Plan of Treatment Upcoming Encounters Date Type Department Care Team (Late st Contact Info) Description 08/19/2024 14:30 EST Rehab Therapy Visit [facility] [place] [id number] Alisia Vuong, PT [address] [facility] [place] [address] 08/26/2024 14:30 EST Rehab Therapy Visit [facility] Therapy [address] [place], [place] [id number] Alisia Vuong, PT [address] [place] [facility] [address] documented as of this encounter Visit Diagnoses Not on filedocumented in this encounter Additional Health Concerns Infection Onset Date Last Indicated Resolved Time COVID-19 06/05/2021 06/05/2021 06/25/2021 22:1 5 EST documented as of this encounter Care Teams Application Support Developer Relationship Specialty Start Date End Date [facility] [address] [place] [address] PCP - General 06/05/21 08/20/23 documented as of this encounter
--- OUTSIDE RECORDS SUMMARY | 2024-08-07 15:34 | XMS_ITS | Encounter Summary ---
Author Organization [facility] Address [address] [place] [address] Care Team Providers Care Insurance Billing Specialist Name Role Phone Dung Truong [facility] Primary Care Provider [phone] None, Provider Primary Care Provider Juanita Esposito Primary Care Provider [phone] Encounter Details Date Type Department Care Team (Late st Contact Info) Description 05/02/2022 Lab Requisition [facility] Pathology & Laboratory Medicine - [address] [id number] Outr Resulting Lab, Provider Social History Tobacco Use Types Packs/Day Years Used Date Smoking Tobacco: Never Assessed Sex and Gender Information Value Date Recorded Sex Assigned at Not on file Legal Sex Male 15:24 EST Gender Identity Male 06/05/2021 15:30 EST Sexual Orientation Not on file documented as of this encounter Plan of Treatment Upcoming Encounters Date Type Department Care Team (Late st Contact Info) Description 08/19/2024 14:30 EST Rehab Therapy Visit [address] [address] Alisia Vuong, PT [address] [place], [place] [id number] 08/26/2024 14:30 EST Rehab Therapy Visit [address] [id number] Alisia Vuong, PT [address] [place] [address] documented as of this encounter Procedures Procedure Name Priority Date/Time Associated Diagnosis Comments PSA TOTAL, DIAGNOSTIC Routine 05/02/2022 12:30 EDT documented in this encounter Results * PSA TOTAL, DIAGNOSTIC (05/02/2022 12:30 EDT) PSA 0.7 <=3.5 ng/mL 05/03/2022 22:21 EDT [facility] Blood VENOUS BLOOD / Unknown 05/02/2022 12:30 EDT 05/03/2022 20:27 EDT Narrative [facility] - 05/03/2022 22:21 EDT NOTE: Serum PSA concentration should not be interpreted as absolute evidence for the presence or absence of malignant disease. Assayed on Siemens ProtAbaur XPT using chemiluminescent technology.??Values obtained by using different assay methods cannot be used interchangeably. us Provider Outr Resulting Lab CHEMISTRY & BLOOD GA S ORDERABLES Final Result [facility] [address] [place] [address] documented in this encounter Visit Diagnoses Not on filedocumented in this encounter Additional Health Concerns Infection Onset Date Last Indicated Resolved Time R/O COVID-19 08/21/2023 08/21/2023 08/21/2023 19:3 4 EST documented as of this encounter Care Teams Insurance Billing Specialist Relationship Specialty Start Date End Date [facility] [address] [place] [address] PCP - General 06/05/21 08/20/23 None, Provider PCP - General 08/21/23 09/27/23 Juanita Marie FNP [address] [place] [phone] PCP - General Family Medicine - Primary Care 09/28/23 documented as of this encounter
--- OUTSIDE RECORDS SUMMARY | 2024-08-07 15:34 | XMS_ITS | Encounter Summary ---
Author Organization [facility] Address [address] [place] [address] Care Team Providers Care Wind Turbine Machinist Name Role Phone None, Provider Primary Care Provider Unavailabl e Reason for Visit * Reason Comments Cough Weakness Encounter Details Date Type Department Care Team ([facility] st Contact Info) Description 08/21/2023 15:15 EST Walk-In [facility] [address] [place] [id number] Ingrid Locke PA-C [address] [facility] [address] [place] [address] Cough, unspecified type (Primary Dx) Social History Tobacco Use Types Packs/Day Years Used Date Smoking Tobacco: Never Assessed Sex and Gender Information Value Date Recorded Sex Assigned at Not on file Legal Sex Male 15:24 EST Gender Identity Male 06/05/2021 15:30 EST Sexual Orientation Not on file documented as of this encounter Last Filed Vital Signs Vital Sign Reading Time Taken Comments Blood Pressure 163/86 08/21/2023 1521 EST Pulse 90 08/21/2023 1521 EST Temperature 36.7 ??C (98.1 ??F) 08/21/2023 1521 EST Respiratory Rate 20 08/21/2023 1521 EST Oxygen Saturation 99% 08/21/2023 1521 EST Inhaled Oxygen Concentration - - Weight - - Height - - Body Mass Index - - documented in this encounter Patient Instructions * Patient Instructions* Ingrid Locke PA-C - 08/21/2023 15:15 EST You were seen today for a cough. You were swabbed for covid. We will call with a positive result. Please sign up for mychart. Please continue with hydration, mucinex, rest, and follow up with new fevers or shortness of breath. documented in this encounter Progress Notes * Zakiya Soto RN - 08/21/2023 5067 EST CC/HPI: had cough last week & congestion over the weekend, wanting a covid test. Symptoms have improved. Has appt coming up with [facility] - just signed up to see them on Monday. No meds for symptoms Covid Screening: In the last 72 hours, has the patient had: New or unusual cough, shortness of breath, new nasal congestion, sore throat, fever, chills, body aches, or new loss of taste or smell without a reasonable alternative diagnosis*? (If yes, assign to ARC)- cough, congestion In the past 10 days, has the patient had a positive Covid test OR a confirmed close Covid exposure (<6ft for > 15mins in 24hr period)? (if yes, assign to ARC, regardless of vaccination status)-no *may be determined by RN or in discussion with available provider (ADVISORY SOFTWARE ENGINEER's and CCA's can defer to Charge Nurse to complete triage when appropriate) PCP: Provider None * Ingrid Locke PA-C - 08/21/2023 1844 EST [facility] Chief Complaint(s): Chief Complaint Patient presents with Cough Weakness Assessment & Plan: 1. Cough, unspecified type COVID-19 TESTING COVID-19 [facility] (TESTING ONLY) New Prescriptions No medications on file This patient presents with concern for cough. The patient has a reassuring physical exam without a focal point of infection. Vital signs stable and the patient appears well. The patient has improvingviral symptoms. Educated on covid swab and how treatment plan would likely not change with positiveresult. Pt continues to request swab. Antibiotics not indicated at this time. Advised rest, hydration, and time. Use nasal saline, humidifier in bedroom, hot steam baths, and OTC medications as discussed. Symptoms will last 7-10 days andmay have lingering cough/nasal congestion for 1-2 weeks. F.u with any concern for worsening symptoms, fevers, SOB. HPI: This patient presents with concern for 1 week of cough. Symptoms are improving although he presents today for a COVID test. He denies shortness of breath, fevers, chest pain. Some nasal congestion. No sore throat. The history is provided by the patient. ROS: Review of Systems Constitutional: Negative for fever. HENT: Negative for sore throat. Respiratory: Positive for cough. Negative for shortness of breath. Musculoskeletal: Negative for myalgias. Neurological: No change in taste or sense of smell Objective: Vitals and nursing notes reviewed Examination: BP (!) 163/86 Pulse 90 Temp 36.7 ??C (98.1 ??F) (Oral) Resp 20 SpO2 99% Physical Exam Constitutional: Appearance: He is well-developed. HENT: Right Ear: Tympanic membrane normal. Left Ear: Tympanic membrane normal. Mouth/Throat: Pharynx: No oropharyngeal exudate or posterior oropharyngeal erythema. Eyes: Conjunctiva/sclera: Conjunctivae normal. Cardiovascular: Rate and Rhythm: Normal rate and regular rhythm. Pulmonary: Effort: Pulmonary effort is normal. Breath sounds: No wheezing, rhonchi or rales. Musculoskeletal: Cervical back: Normal range of motion. Lymphadenopathy: Cervical: No cervical adenopathy. Skin: General: Skin is warm and dry. Neurological: Mental Status: He is alert. Gait: Gait normal. An appropriate medical screening examination was performed. The patient was assessed prior to discharge and deemed stable for discharge home. This note may be in part documented using voice dictation software. Please forgive any errors or omissions that may result from use of dictation. documented in this encounter Plan of Treatment Upcoming Encounters Date Type Department Care Team (Late st Contact Info) Description 08/19/2024 14:30 EST Rehab Therapy Visit [address] [address] Juan Vuongssica, PT [address] [facility], [place] [id number] 08/26/2024 14:30 EST Rehab Therapy Visit [facility] Therapy [address] [place], [place] [address] Yevgeniy Alisia, PT [address] [facility], [place] [phone] documented as of this encounter Procedures Procedure Name Priority Date/Time Associated Diagnosis Comments ZZCOVID-19 CV (TESTING ONLY) Today 08/21/2023 16:41 EST Cough, unspecified type COVID-19 TESTING Routine 08/21/2023 16:4 1 EST Cough, unspecified type documented in this encounter Results * COVID-19 CV (TESTING ONLY) (08/21/2023 16:41 EST) Swab BOTH ANTERIOR NARES / Unknown Swab / Unknown 08/21/2023 16:41 EST 08/21/2023 16:41 EST Ingrid Locke PA-C MICROBIOLOGY - GENERAL ORDERABLES Final Result Performing Organization Address City/[facility]/ZIP Co de Phone Number [facility] [address] [place] [address] * COVID-19 TESTING (08/21/2023 16:41 EST) COVID-19 rt-PCR Result Negative Negative 08/21/2023 19:34 EST [facility] Performing Lab Cepheid GeneXpert [facility] 08/21/2023 19:34 EST [facility] Swab BOTH ANTERIOR NARES / Unknown Swab / Unknown 08/21/2023 16:41 EST 08/21/2023 16:41 EST us Ingrid Locke PA-C MICROBIOLOGY - GENERAL ORDERABLES Final Result [facility] [address] [place] [address] documented in this encounter Visit Diagnoses Diagnosis Cough, unspecified type- Primary documented in this encounter Historical Medications * This list may reflect changes made after this encounter. valsartan (DIOVAN) 160 mg tablet Take 1 Tablet by mouth daily. 07/27/2023 hydroCHLOROthiazi de (HYDRODIURIL) 25 mg tablet Take 1 Tablet by mouth daily. 08/02/2023 atorvastatin (LIPITOR) 20 mg tablet Take 1 Tablet by mouth at bedtime. 07/26/2023 added in this encounter Care Teams Wind Turbine Machinist Relationship Specialty Start Date End Date None, Provider PCP - General 08/21/23 09/27/23 documented as of this encounter
[2024-08-07 22:03] LABS: ALT 51 U/L (16-63); AST 29 U/L (15-37); Albumin 3.9 g/dL (3.4-5.0); Alkaline Phosphatase 66 U/L (46-116); BUN 12 mg/dL (7-18); Bilirubin, Total 0.39 mg/dL (0.2-1.0); CREATININE 1.1 mg/dL (0.70-1.30); Calcium 9.3 mg/dL (8.5-10.1); Calculated LDL 84 mg/dL (<100); Chloride 105 mmol/L (98-107); Cholesterol 166 mg/dL (<200); Estimated GFR 76.85 (mL/min/1.73m2); Glucose 119 mg/dL (74-106); HDL Cholesterol 43 mg/dL (40-60); Potassium 3.9 mmol/L (3.5-5.1); Sodium 142 mmol/L (136-145); Total Protein 7.1 g/dL (6.4-8.2); Triglyceride 196 mg/dL (<150)
== END 2024-08-07 15:32 | disposition home or self-care (01) ==
LOC: NCHCN 15:31
PROVIDERS: Visit Provider Nurse Practitioner Family
DX: I10 Essential (primary) hypertension (principal); R73.03 Prediabetes
CPT/HCPCS: 80053; 80061; 83036

== ENCOUNTER 2024-10-07 21:53 | Outpatient (REF) | payer BC, SELFPAY ==
[2024-10-07 21:51] LABS: Abs Immature Grans 0.02 10^3/uL (0.0-0.06); Absolute Basophil Count 0.07 10^3/uL (0.0-0.2); Absolute Eosinophil Count 0.08 10^3/uL (0.0-0.7); Absolute Lymphocyte Count 1.48 10^3/uL (1.2-3.4); Absolute Monocyte Count 0.31 10^3/uL (0.1-0.8); Absolute Neutrophil Count 5.75 10^3/uL (1.2-6.7); Basophils % 0.9 %; HCT 44.8 % (40.0-50.0); Immature Grans % 0.3 %; Lymphocytes % 19.2 %; MCH 32.1 pg (27.0-33.0); MCHC 35.7 % (32.0-36.0); MCV 90 fL (80-95); MPV 9.7 fL (8.0-11.0); Neutrophils % 74.6 %; Platelet Count 316 10^3/uL (130-400); RBC 4.98 10^6/uL (4.36-5.78); RDW 12.5 % (11.8-14.1); RDW-SD 40.9 fL; WBC 7.71 10^3/uL (4.4-10.8)
[2024-10-07 22:01] LABS: ALT 62 U/L (16-63); AST 42 U/L (15-37); Albumin 4.1 g/dL (3.4-5.0); Alkaline Phosphatase 61 U/L (46-116); Anion Gap 7.3 mmol/L (3-11); BUN 15 mg/dL (7-18); Bilirubin, Total 0.5 mg/dL (0.2-1.0); CO2 29.7 mmol/L (21.0-32.0); CREATININE 1.1 mg/dL (0.70-1.30); Chloride 103 mmol/L (98-107); Estimated GFR 76.85 (mL/min/1.73m2); Glucose 196 mg/dL (74-106); Potassium 3.4 mmol/L (3.5-5.1); Sodium 140 mmol/L (136-145); Total Protein 7.3 g/dL (6.4-8.2)
== END 2024-10-07 21:54 | disposition home or self-care (01) ==
LOC: NCHCN 21:53
PROVIDERS: PCP Nurse Practitioner Family; Visit Provider Nurse Practitioner Family
DX: D72.819 Decreased white blood cell count, unspecified (principal)
CPT/HCPCS: 80053; 85025